=== PATIENT | female | born 1935 | race Caucasian/White ===

== ENCOUNTER 2017-03-08 12:32 | Emergency (ER) | payer MEDICARE, OTHER ==
[~2017-03-08] VITALS: Ht 152.4 cm; Wt 63.5 kg
[~2017-03-08 12:32] MED LIST: CALCIUM; CELE200C PO; CHLO25TA13 PO; HYD25 PO; OMEP20CA16 PO; RANI150T5 PO; ROSU5TAB5 PO; TRAM50TA2 PO
[2017-03-08 12:37] VITALS: Ht 152.4 cm; Wt 63.5 kg
[2017-03-08] MEDS ORDERED: HYDROCODONE/APAP (5/325) TAB PO ONE (14:00)
--- NOTE | 2017-03-08 15:21 | RADRPT ---
PROCEDURE: XR right shoulder. CLINICAL INDICATION: 82-year-old female with right shoulder pain. TECHNIQUE: AP Internal and external rotation views of the right shoulder were performed. COMPARISON: None. FINDINGS: There is narrowing of the subacromial joint space and glenohumeral joint space. There are degenerati ve changes around the right AC joint. There is a calcification lateral to the right humeral head. Th ere are degenerative osteophytes in the thoracic spine. There are vascular calcifications in the aor tic arch. The right lung is clear with mild elevation of the right diaphragm. IMPRESSION: 1. 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 2. Calcific tendonitis of the supraspinatus tendon. 3. Chronic right rotator cuff tear resulting in narrowing of the subacromial joint space. 4. Atherosclerotic vascular disease. 5. Dextroscoliosis of the mid thoracic spine with osteoarthritic degenerative changes of the thorac ic spine. RPTAT:AAJJ Physician Peter Date Time Electronically viewed and signed by Physician Peter on 03/08/2017 15:21 MISTY/
--- NOTE | 2017-03-08 15:23 | RADRPT ---
PROCEDURE: XR Cervical Spine. CLINICAL INDICATION: pain TECHNIQUE: AP, lateral and odontoid views of the cervical spine were performed. The images were re viewed on a PACS workstation. COMPARISON: None. FINDINGS: There is reversal of the cervical curvature. There is disc space narrowing with ventral and dorsal s pondylosis at C4-5, C5-6 and C6-7. There is grade 1 anterolisthesis of C7-T1. The neural canal is no rmal in size. There are vascular calcifications in the aortic arch and degenerative osteophytes are noted in the upper thoracic spine. IMPRESSION: 1. Osteoarthritis involving the upper mid and lower cervical spine. 2. Reversal of the cervical curvature and a reflect paraspinal musculature spasm. 3. Atherosclerosis of the aortic arch. 4. Osteoarthritis of the upper thoracic spine. RPTAT:AAJJ Physician Peter Date Time Electronically viewed and signed by Physician Petre on 03/08/2017 15:22 MISTY/
[2017-03-08] MEDS ORDERED: HYDR-906 PO (15:28)
--- NOTE | 2017-03-08 15:32 | ERD ---
ER Documentation Chief Complaint Date/Time DATE: 03/08/17 TIME: 15:30 Chief Complaint pt bib self with c/o left shoulder and back pain s/p lifting rock 3 wks ago HPI Patient is an 82-year-old female who presents with right shoulder pain as well as bilateral neck pain she has had for 3 weeks. She states she has a history of arthritis and she always has some aches and pains but 3 weeks ago she bent down to belt picker her small dog and ever since the pain has been aggravated. She has been taking Tylenol but it does not help and the pain keeps her up at night. She denies any chest pain or shortness of breath. Denies any palpitations. Denies trauma. ROS All systems reviewed and are negative except as per history of present illness. Medications Home Meds Active Scripts Hydrocodone/Acetaminophen ([place] 5-325 Tablet) 1 Each Tablet, 1 TAB PO Q6H Y for PAIN, #15 TAB Prov:DANIELE BRADSHAW PA-C 03/08/17 Tramadol HCl (Tramadol HCl) 50 Mg Tablet, 50 MG PO Q6 Y for PAIN, #20 TAB Prov:JASPER BENJAMIN MD 01/02/16 Reported Medications [Calcium] No Conflict Check, 600 05/06/16 Omeprazole* (Omeprazole*) 20 Mg Capsule.dr, 20 MG PO DAILY, #30 CAP 05/06/16 Hydrochlorothiazide* (Hydrochlorothiazide*) 25 Mg Tab, 25 MG PO DAILY, #30 TAB 01/02/16 Rosuvastatin Calcium* (Crestor*) 5 Mg Tablet, 5 MG PO QHS, #30 TAB 01/02/16 Chlorthalidone* (Chlorthalidone*) 25 Mg Tablet, 25 MG PO DAILY, TAB 01/02/16 Celecoxib* (Celebrex*) 200 Mg Capsule, 200 MG PO DAILY, CAP 10/17/14 Ranitidine Hcl* (Ranitidine Hcl*) 150 Mg Tablet, 150 MG PO HS, TAB 10/17/14 Tramadol HCl (Tramadol HCl) 50 Mg Tab, 50 MG PO Q6H Y for PAIN, TAB 10/17/14 Allergies Allergies: Coded Allergies: No Known Allergy (Unverified , 01/02/16) PMhx/Soc History of Surgery: No (not indicated) Anesthesia Reaction: No Hx Neurological Disorder: No Hx Respiratory Disorders: No Hx Cardiac Disorders: No Hx Psychiatric Problems: No Hx Miscellaneous Medical Probl: Yes (not indicated, except OA) Hx Alcohol Use: No Hx Substance Use: No Hx Tobacco Use: No Smoking Status: Never smoker FmHx Family History: No diabetes Physical Exam Vitals Vital Signs Date Time Temp Pulse Resp B/P Pulse Ox O2 Delivery O2 Flow Rate FiO2 03/08/17 12:37 99.0 97 16 134/64 99 Physical Exam INITIAL VITAL SIGNS: Reviewed by me GENERAL: Awake, alert and oriented x 4, well appearing, nontoxic, speaking in full sentences. No acute distress HEAD: Atraumatic EYES: EOMI. PERRL. NECK: Supple. No masses. Full range of motion. No meningismus. No midline tenderness. RESPIRATORY: Clear to auscultation bilaterally. Symmetric chest wall rise. No wheezing or rales. No accessory muscle use. CV: Regular rate and rhythm. No murmurs, rubs, or gallops. EXTREMITIES: No clubbing or cyanosis. No edema. Moving all extremities normally. BACK: No midline tenderness to palpation. No step-offs. NEUROLOGIC: Normal mental status and speech. Face is symmetric. Moves all extremities equally. Motor and sensory distally intact. Normal coordination. Ambulates with a strong steady gait. Results 24 hrs Current Medications Medications (Trade) Dose Ordered Sig/Kofi Route PRN Reason Start Time Stop Time Status Last Admin Dose Admin Acetaminophen/ Hydrocodone Bitart ([place] (5/325)) 1 tab ONCE ONCE PO 03/08/17 14:00 03/08/17 14:01 DC 03/08/17 14:19 Procedures/MDM Patient has shoulder and neck pain after bending over picking up her dog a few weeks ago. She is well-appearing in no distress. She has no chest pain or shortness of breath. This is seems to be musculoskeletal in nature. Patients is alert, oriented, well appearing, and in no distress with normal vital signs. There is no fever, tachycardia, or tachypnea. The differential diagnosis includes but is not limited to muscle strain, ligament strain, contusion, arthritis, discogenetic disease, non-musculoskeletal, cauda equina syndrome, cord compression, abscess and others. Patient was given one [place] here and at discharge she had relief of her symptoms. Patient was discharged with a small amount of [place]. I explained to her that this could cause constipation and she is taking a stool softener and I was going to give her a prescription for Colace but she states she has at home. She also has Tylenol at home. Patient counseled regarding my diagnostic impression and care plan. Prior to discharge all questions answered. Pt agrees with treatment plan and understands strict return precautions. Pt is instructed to follow up with primary care provider within 24-48 hours. Precautionary instructions provided including instructions to return to the ER if not improving or for any worsening or changing symptoms or concerns. Departure Diagnosis: Primary Impression: Shoulder pain Additional Impression: Cervical strain Condition: Stable Patient Instructions: Osteoarthritis: Coping with Pain, Osteoarthritis: Managing Pain Additional Instructions: Llame al doctor MAANA y lobo sudhakar JODEE PARA DENTRO DE 1-2 FARAH.Dgale a la secretaria que nosotros le instruimos hacer esta jodee.Avise o llame si aponte condicin se empeora antes de la jodee. Regresa aqui si peor o no mejor. DANIELE BRADSHAW PA-C Mar 08, 2017 15:32
[2017-03-08 15:41] VITALS: BP 155/67; PULSE 77; RESP 16; TEMP 98.8
== END 2017-03-08 15:42 | disposition home or self-care (01) ==
LOC: FTE 12:32
DX: S16.1XXA Strain of muscle, fascia and tendon at neck level, initial encounter (principal); X58.XXXA Exposure to other specified factors, initial encounter; Y92.9 Unspecified place or not applicable
CPT/HCPCS: 72040

== ENCOUNTER 2017-03-29 15:02 | Emergency (ER) | payer MEDICARE, OTHER ==
[~2017-03-29] VITALS: Ht 160 cm; Wt 63.5 kg
[~2017-03-29 15:02] MED LIST changes: -HYD25 PO; +HYDR-906 PO; +HYDR25TA6 PO
[2017-03-29 15:17] VITALS: Ht 160 cm; Wt 63.5 kg
[2017-03-29 16:07] LABS: BASOPHIL # 0.1 10^3/ul (0.0-0.1); BASOPHILS % 0.5 % (0.0-2.0); EOSINOPHILS # 0.4 10^3/ul (0.0-0.5); EOSINOPHILS % 4.1 % (0.0-7.0); HEMATOCRIT 39.1 % (37.0-47.0); HEMOGLOBIN 12.9 g/dl (12.0-16.0); LYMPHOCYTES # 1.7 10^3/ul (0.8-2.9); LYMPHOCYTES % 16.7 % (15.0-51.0); MEAN CORPUSCULAR VOLUME 90.9 fl (82.0-101.0); MEAN PLATELET VOLUME 9.5 fl (7.4-10.4); MONOCYTE # 1.1 10^3/ul (0.3-0.9); MONOCYTES % 10.6 % (0.0-11.0); NEUTROPHIL # 6.7 10^3/ul (1.6-7.5); NEUTROPHILS % 67.5 % (39.0-77.0); PLATELET COUNT 326 10^3/UL (140-415); RED CELL DISTRIBUTION WIDTH 12.6 % (11.5-14.5); WHITE BLOOD COUNT 9.9 10^3/ul (4.8-10.8)
[2017-03-29 16:26] LABS: ALBUMIN 3.8 g/dl (3.3-4.9); BILIRUBIN,INDIRECT 0.3 mg/dl (0-1.1); BILIRUBIN,TOTAL 0.3 mg/dl (0.2-1.3); CALCIUM 9.3 mg/dl (8.4-10.2); CREATININE 0.53 mg/dl (0.44-1.00); TOTAL PROTEIN 7.6 g/dl (6.1-8.1)
--- NOTE | 2017-03-29 16:31 | RADRPT ---
PROCEDURE: Left knee radiographs. CLINICAL INDICATION: Left knee pain. TECHNIQUE: Three views. Weight bearing. Frontal, lateral, and oblique. COMPARISON: No prior studies are available for comparison. FINDINGS: There is no fracture or dislocation. There is chondrocalcinosis. There is a left knee joint effusion. There are degenerative changes with osteophytes arising from all 3 joint compartment margins. There is medial joint compartment narrowing, subarticular sclerosis, and deformity. There is no lytic or blastic lesion. There is no radiopaque foreign body. IMPRESSION: 1. Severe degenerative change. 2. Joint effusion. 3. Otherwise unremarkable images of the left knee. RPTAT: QQ .Luis Fernando Agudelo MD, Date Time Electronically viewed and signed by .Luis Fernando Agudelo MD, on 03/29/2017 16:31 .R/
--- NOTE | 2017-03-29 16:31 | RADRPT ---
PROCEDURE: Left wrist radiographs. CLINICAL INDICATION: Left wrist pain. TECHNIQUE: Three views. Frontal, lateral, and oblique. COMPARISON: No prior studies are available for comparison. FINDINGS: There is no fracture or dislocation. The soft tissues are normal. Articular surfaces are intact. There is no lytic or blastic lesion. There is no radiopaque foreign body. IMPRESSION: 1. Normal images of the left wrist. RPTAT: QQ .Luis Fernando Agudelo MD, MD Date Time Electronically viewed and signed by .Luis Fernando Agudelo MD, on 03/29/2017 16:30 .R/
[2017-03-29] MEDS ORDERED: CAPS42.510 TOP (16:46)
--- NOTE | 2017-03-29 18:59 | ERD ---
ER Documentation Chief Complaint Date/Time DATE: 03/29/17 TIME: 18:44 Chief Complaint Pt presents with neck, L knee pain and swelling X 3 days. no injury. HPI 82-year-old female is complaining of left knee pain and left wrist pain 3 days. Symptoms onset in the morning upon awake. She also noticed redness and swelling on both wrist and left knee. The pain makes walking difficult. She is using a walker at this time. She reports feeling chilled yesterday, but did not check her temperature. Swelling has improved today. History of osteoarthritis, is taking Celebrex for pain. Denies any injuries. Denies history of gout or diabetes. ROS All systems reviewed and are negative except as per history of present illness. Medications Home Meds Active Scripts Capsaicin (Capsaicin) 42.5 Gm Cream.gm., 1 APPLIC TOP TID Y for PAIN, #1 TUB Prov:COLTON WONG. CHIEF INFORMATION SECURITY OFFICER 03/29/17 Hydrocodone/Acetaminophen ([place] 5-325 Tablet) 1 Each Tablet, 1 TAB PO Q6H Y for PAIN, #15 TAB Prov:DANIELE BRADSHAW PA-C 03/08/17 Tramadol HCl (Tramadol HCl) 50 Mg Tablet, 50 MG PO Q6 Y for PAIN, #20 TAB Prov:JASPER BENJAMIN MD 01/02/16 Reported Medications [Calcium] No Conflict Check, 600 05/06/16 Omeprazole* (Omeprazole*) 20 Mg Capsule.dr, 20 MG PO DAILY, #30 CAP 05/06/16 Hydrochlorothiazide* (Hydrochlorothiazide*) 25 Mg Tab, 25 MG PO DAILY, #30 TAB 01/02/16 Rosuvastatin Calcium* (Crestor*) 5 Mg Tablet, 5 MG PO QHS, #30 TAB 01/02/16 Chlorthalidone* (Chlorthalidone*) 25 Mg Tablet, 25 MG PO DAILY, TAB 01/02/16 Celecoxib* (Celebrex*) 200 Mg Capsule, 200 MG PO DAILY, CAP 10/17/14 Ranitidine Hcl* (Ranitidine Hcl*) 150 Mg Tablet, 150 MG PO HS, TAB 10/17/14 Tramadol HCl (Tramadol HCl) 50 Mg Tab, 50 MG PO Q6H Y for PAIN, TAB 10/17/14 Allergies Allergies: Coded Allergies: No Known Allergy (Unverified , 7/5/16) PMhx/Soc History of Surgery: No (not indicated) Anesthesia Reaction: No Hx Neurological Disorder: No Hx Respiratory Disorders: No Hx Cardiac Disorders: No Hx Psychiatric Problems: No Hx Miscellaneous Medical Probl: Yes (not indicated, except OA) Hx Alcohol Use: No Hx Substance Use: No Hx Tobacco Use: No Physical Exam Vitals Vital Signs Date Time Temp Pulse Resp B/P Pulse Ox O2 Delivery O2 Flow Rate FiO2 03/29/17 15:17 99.5 87 16 121/58 95 Physical Exam General: Well-developed, well-nourished, conscious and coherent, in no distress Skin: Warm and dry without rash, good texture and turgor Head: Normocephalic without evidence of trauma Eyes: Sclera and conjunctivae normal; pupils equal, round, and reactive to light; extraocular movements are intact Chest: Normal AP diameter. Good expansion without retractions. Nontender. Lungs are clear to auscultate bilaterally with good tidal volume Heart: Regular rate and rhythm. No murmur, rub, or gallops heard Extremities: Left wrist left knee mildly swollen compared to the right, nontender. Mildly decreased range of motion due to pain. Good strength bilaterally. No clubbing, cyanosis, or edema. Peripheral pulses are intact. Sensation intact Neuro: Alert and oriented 4, GCS 15. Cranial nerves grossly intact. Motor and sensory exams nonfocal. Moves all extremities. Speech clear. Gait normal Result Diagram: 03/29/17 1556 03/29/17 1556 Results 24 hrs Laboratory Tests Test 03/29/17 15:56 White Blood Count 9.910^3/ul Red Blood Count 4.3010^6/ul Hemoglobin 12.9g/dl Hematocrit 39.1% Mean Corpuscular Volume 90.9fl Mean Corpuscular Hemoglobin 30.0pg Mean Corpuscular Hemoglobin Concent 33.0g/dl Red Cell Distribution Width 12.6% Platelet Count 94168^3/UL Mean Platelet Volume 9.5fl Neutrophils % 67.5% Lymphocytes % 16.7% Monocytes % 10.6% Eosinophils % 4.1% Basophils % 0.5% Nucleated Red Blood Cells % 0.0/100WBC Neutrophils # 6.710^3/ul Lymphocytes # 1.710^3/ul Monocytes # 1.110^3/ul Eosinophils # 0.410^3/ul Basophils # 0.110^3/ul Nucleated Red Blood Cells # 0.010^3/ul Sodium Level 136mmol/L Potassium Level 4.0mmol/L Chloride Level 100mmol/L Carbon Dioxide Level 30mmol/L Anion Gap 10 Blood Urea Nitrogen 22mg/dl Creatinine 0.53mg/dl Glucose Level 112mg/dl Uric Acid 3.0mg/dl Calcium Level 9.3mg/dl Total Bilirubin 0.3mg/dl Direct Bilirubin 0.00mg/dl Indirect Bilirubin 0.3mg/dl Aspartate Amino Transf (AST/SGOT) 25IU/L Alanine Aminotransferase (ALT/SGPT) 34IU/L Alkaline Phosphatase 106IU/L Total Protein 7.6g/dl Albumin 3.8g/dl Globulin 3.80g/dl Albumin/Globulin Ratio 1.00 PROCEDURE: Left knee radiographs. CLINICAL INDICATION: Left knee pain. TECHNIQUE: Three views. Weight bearing. Frontal, lateral, and oblique. COMPARISON: No prior studies are available for comparison. FINDINGS: There is no fracture or dislocation. There is chondrocalcinosis. There is a left knee joint effusion. There are degenerative changes with osteophytes arising from all 3 joint compartment margins. There is medial joint compartment narrowing, subarticular sclerosis, and deformity. There is no lytic or blastic lesion. There is no radiopaque foreign body. IMPRESSION: 1. Severe degenerative change. 2. Joint effusion. 3. Otherwise unremarkable images of the left knee. RPTAT: QQ .Luis Fernando Agudelo MD, MD Date Time Electronically viewed and signed by .Luis Fernando Agudelo MD, on 03/29/2017 16:31 .R/ CC: COLTON WONG NP PROCEDURE: Left wrist radiographs. CLINICAL INDICATION: Left wrist pain. TECHNIQUE: Three views. Frontal, lateral, and oblique. COMPARISON: No prior studies are available for comparison. FINDINGS: There is no fracture or dislocation. The soft tissues are normal. Articular surfaces are intact. There is no lytic or blastic lesion. There is no radiopaque foreign body. IMPRESSION: 1. Normal images of the left wrist. RPTAT: QQ .Luis Fernando Agudelo MD, Date Time Electronically viewed and signed by .Luis Fernando Agudelo MD, on 03/29/2017 16:30 .R/ CC: COLTON WONG CHIEF INFORMATION SECURITY OFFICER Procedures/MDM Well-appearing 82-year-old female with history of osteoarthritis present ED was left wrist and left knee swelling and pain 3 days. Time, patient does not have any discernible erythema or swelling of the affected joint. Low suspicion for septic joints. CBC and CMP are unremarkable. Uric acid is low at 3.0. Low suspicion for gout. X-ray of the left wrist and left knee are also obtained. Wrist x-rays unremarkable. Left knee x-ray showed severe degenerative change with joint effusion, otherwise unremarkable. The patient's pain is due to osteoarthritis. Patient advised to continue taking Celebrex, and follow-up with her PCP. Capzasin cream topical treatment is prescribed for the patient. Patient appears well, stable for discharge and outpatient management. Medical decision making shared with patient and family. Education provided to patient and family. Patient and family expressed understanding of the plan. Medications on discharge: Capsaicin cream. Follow-up: Primary care provider in 2-3 days or return to ED if worse. Disclaimer: Inadvertent spelling and grammatical errors are likely due to EHR/ dictation software use and do not reflect on the overall quality of patient care. Also, please note that the electronic time recorded on this note does not necessarily reflect the actual time of the patient encounter. Departure Diagnosis: Primary Impression: Left knee pain Additional Impressions: Osteoarthritis Left wrist pain Condition: Stable Patient Instructions: What Is Arthritis? Additional Instructions: Llame al doctor MAANA y lobo sudhakar JODEE PARA DENTRO DE 2-3 FARAH.Dgale a la secretaria que nosotros le instruimos hacer esta jodee.Avise o llame si aponte condicin se empeora antes de la jodee. Regresa aqui si peor o no mejor. COLTON WONG NP Mar 29, 2017 18:54
== END 2017-03-29 17:08 | disposition home or self-care (01) ==
LOC: FTE 15:02
DX: M25.562 Pain in left knee (principal); M17.9 Osteoarthritis of knee, unspecified; M25.532 Pain in left wrist
CPT/HCPCS: 73562; 80053; 84560; 85025

== ENCOUNTER 2017-04-18 19:07 | Emergency (ER) | payer MEDICARE, OTHER ==
[~2017-04-18] VITALS: Ht 160 cm; Wt 63.5 kg
[~2017-04-18 19:07] MED LIST changes: +CAPS42.510 TOP
[2017-04-18 19:11] VITALS: Ht 160 cm; Wt 63.5 kg
[2017-04-18] MEDS ORDERED: ACETAMINOPHEN 325 MG TAB PO ONE (21:00)
--- NOTE | 2017-04-18 22:19 | RADRPT ---
PROCEDURE: XR Chest. CLINICAL INDICATION: Fall with upper back pain. TECHNIQUE: PA and Lateral views of the chest were obtained. COMPARISON: 05/08/2012. FINDINGS: Cardiomegaly and atherosclerotic calcifications in the thoracic aorta. The lungs are clear. No signs of pleural fluid or pneumothorax are seen. The osseous structures and soft tissues are unremarkable . IMPRESSION: No evidence for active cardiopulmonary disease. RPTAT: UU Physician Melquiades Date Time Electronically viewed and signed by Physician Melquiades on 04/18/2017 22:19 RS/
--- NOTE | 2017-04-18 22:27 | RADRPT ---
PROCEDURE: XR thoracic Spine. CLINICAL INDICATION: Back pain. TECHNIQUE: AP, lateral and swimmer's views of the thoracic spine were obtained. COMPARISON: No prior studies are available for comparison. FINDINGS: Degenerative changes with anterior endplate osteophytes and bilateral marginal osteophytes throughou t the thoracic spine. Mild levoscoliosis in the lower thoracic spine. No acute fracture or subluxation is seen. Are narrowed throughout the cervical spine, with near bone on bone articulation at the mid cervical spine. The posterior elements are unremarkable. The soft tissues appear normal. Cardiomegaly. Atherosclerotic calcifications in the thoracic aorta. IMPRESSION: 1. Degenerative changes, with mild levoscoliosis in the lower thoracic spine. 2. No evident acute fracture. RPTAT: UU Physician Melquiades Date Time Electronically viewed and signed by Physician Melquiades on 04/18/2017 22:27 RS/
--- NOTE | 2017-04-18 22:27 | RADRPT ---
PROCEDURE: CT Brain without contrast. CLINICAL INDICATION: Trauma. Pain.. TECHNIQUE: A CT of the brain was performed on a multislice detector CT scanner utilizing axial sec tions from the skull base through the vertex without contrast. Images were reviewed on a [facility] PACS workstation. Exam CTDlvol = 45 mGy and DLP = 630 mGy-cm. One of the following 3 dose red uction techniques were used: Automated exposure control; adjustment of the mA and/or kV according to patient size; or use of iterative reconstruction technique. COMPARISON: MRI brain 12/16/2013 FINDINGS: There is left posterior parietal subcutaneous soft tissue swelling without an underlying fracture. T here is redemonstrated partially calcified hyperdense extra-axial mass of the anterior left frontal parasagittal region 2.17 x 1.8 cm, not significantly changed from prior study. There is localized ef facement of sulci without associated parenchymal edema. There is otherwise no significant mass effec t. There is otherwise age appropriate central and peripheral atrophy. There is no midline shift. T here is a moderate degree of supratentorial periventricular and subcortical white matter hypodensiti es. There is no definite acute stroke. There is no intracranial hemorrhage or abnormal extra-axial fluid collection. Visualized paranasal sinuses are clear. IMPRESSION: 1. Left posterior parietal subcutaneous soft tissue swelling without an underlying fracture. 2. No acute intracranial post-traumatic abnormality. No intracranial hemorrhage. 3. Redemonstrated partially calcified extra-axial mass in the anterior left frontal parasagittal re gion, consistent with a meningioma.. 4. Nonspecific white matter changes most commonly seen with microvascular ischemic disease. RPTAT: HMVK .Liban Melton MD, MD Date Time Electronically viewed and signed by .Liban Melton MD, MD on 04/18/2017 22:27 .K/
--- NOTE | 2017-04-18 22:31 | RADRPT ---
PROCEDURE: XR Lumbar Spine. CLINICAL INDICATION: Back pain. TECHNIQUE: AP, lateral and cone-down lateral view of the lumbar spine were obtained. COMPARISON: No prior studies are available for comparison. FINDINGS: Degenerative changes in the lumbar spine, with disc space narrowing at the L4-5 and L5-S1 levels. Mi ld grade 1 anterolisthesis of L5 and S1. Posterior facet degenerative changes seen at the L3-S1 leve ls, greater at the L5-S1 level. No fracture or subluxation is seen. Levoscoliosis at the lower thoracic and upper lumbar spines. Moderate to severe degenerative changes in bilateral sacroiliac joints. The soft tissues appear normal. IMPRESSION: 1. Degenerative changes with disc space narrowing the lower lumbar spine. 2. Posterior facet degenerative changes, greater at the L5-S1 level. 3. Grade 1 anterolisthesis of L5 on S1. . No acute fracture. 5. Moderate to severe degenerative changes in the bilateral sacroiliac joints. RPTAT: UU Physician Melquiades Date Time Electronically viewed and signed by Physician Melquiades on 04/18/2017 22:31 RS/
--- NOTE | 2017-04-18 22:38 | RADRPT ---
PROCEDURE: CT cervical spine without contrast CLINICAL INDICATION: Trauma. Neck pain. TECHNIQUE: CT scan of the cervical spine was performed on a multidetector scanner. No IV contrast was administered. Coronal and sagittal reformatted images were obtained from the axial source imag es. Images were reviewed on a high-resolution PACS workstation. Exam CTDlvol = 22 mGy and DLP = 464 mGy-cm. One of the following 3 dose reduction techniques were used: Automated exposure control; ad justment of the mA and/or kV according to patient size; or use of iterative reconstruction technique . COMPARISON: X-rays cervical spine 02/11/2015 FINDINGS: No fracture is identified. There is maintenance of height of the vertebral bodies. There is mild r eversal of the normal cervical lordosis. There is unchanged chronic 2.7 mm grade 1 anterior subluxa tion of 7 T1. Alignment is otherwise maintained. Degenerative changes are present, greatest from C 4-5 through C6-7 Prevertebral soft tissues are unremarkable. IMPRESSION: 1. No fracture. 2. Mild reversal of the normal cervical lordosis most commonly seen with spasm versus positioning. 3. Multilevel degenerative changes, greatest at C4-5 to C6-7. 4. Chronic likely degenerative related RPTAT: HMVK .Liban Melton MD, Date Time Electronically viewed and signed by .Liban Melton MD, MD on 04/18/2017 22:38 .K/
[2017-04-18] MEDS ORDERED: ACET500C5 PO (23:52)
[2017-04-19] MEDS ORDERED: DIPHTH/TET/ACEL PERTUSS (ADULT) 0.5 ML VIAL IM* ONE
--- NOTE | 2017-04-19 00:43 | ERD ---
ER Documentation Chief Complaint Chief Complaint scalp laceration after a ground level fall no loc (MARIN GRAHAM PA-C) HPI 82-year-old English speaking female patient with no significant past medical history presents to the ED for a mechanical fall that occurred earlier today at 6 PM. Patient was using her walker to walk at the mall parking lot and her walker got stuck on the bumper and she accidentally fell backwards and hit the back of her head and back. Denies any loss of consciousness. States that mainly her head, neck, upper and lower back hurt. Describes the pain as achy and rates it a 6 out of 10. Reports that she sustained a laceration on her scalp. Denies taking any blood thinners. Denies any chest pain, shortness of breath, wheezing, nausea, vomiting, diarrhea, constipation. Patient's daughter helped interpret English at this time. (MARIN GRAHAM PA-C) ROS All systems reviewed and are negative except as per history of present illness. (MARIN GRAHAM PA-C) Medications Home Meds Active Scripts Acetaminophen* (Tylophen*) 500 Mg Capsule, 1 CAP PO Q6H Y for PAIN AND OR ELEVATED TEMP, #20 CAP Prov:MARIN GRAHAM PA-C 04/18/17 Capsaicin (Capsaicin) 42.5 Gm Cream.gm., 1 APPLIC TOP TID Y for PAIN, #1 TUB Prov:COLTON WONG. TELEGRAPH PRINTER MECHANIC 03/29/17 Hydrocodone/Acetaminophen ([place] 5-325 Tablet) 1 Each Tablet, 1 TAB PO Q6H Y for PAIN, #15 TAB Prov:DANIELE BRADSAHW PA-C 03/08/17 Tramadol HCl (Tramadol HCl) 50 Mg Tablet, 50 MG PO Q6 Y for PAIN, #20 TAB Prov:JASPER BENJAMIN MD 01/02/16 Reported Medications [Calcium] No Conflict Check, 600 05/06/16 Omeprazole* (Omeprazole*) 20 Mg Capsule., 20 MG PO DAILY, #30 CAP 05/06/16 Hydrochlorothiazide* (Hydrochlorothiazide*) 25 Mg Tab, 25 MG PO DAILY, #30 TAB 01/02/16 Rosuvastatin Calcium* (Crestor*) 5 Mg Tablet, 5 MG PO QHS, #30 TAB 01/02/16 Chlorthalidone* (Chlorthalidone*) 25 Mg Tablet, 25 MG PO DAILY, TAB 01/02/16 Celecoxib* (Celebrex*) 200 Mg Capsule, 200 MG PO DAILY, CAP 10/17/14 Ranitidine Hcl* (Ranitidine Hcl*) 150 Mg Tablet, 150 MG PO HS, TAB 10/17/14 Tramadol HCl (Tramadol HCl) 50 Mg Tab, 50 MG PO Q6H Y for PAIN, TAB 10/17/14 Allergies Allergies: Coded Allergies: No Known Allergy (Unverified , 01/02/16) PMhx/Soc History of Surgery: Yes (R foot, R knee) Anesthesia Reaction: No Hx Neurological Disorder: No Hx Respiratory Disorders: No Hx Cardiac Disorders: No Hx Psychiatric Problems: No Hx Miscellaneous Medical Probl: Yes (arthritis, GERD) Hx Alcohol Use: No Hx Substance Use: No Hx Tobacco Use: No Smoking Status: Never smoker (MARIN GRAHAM PA-C) Physical Exam Vitals Vital Signs Date Time Temp Pulse Resp B/P Pulse Ox O2 Delivery O2 Flow Rate FiO2 04/18/17 19:11 99.1 88 20 163/75 97 (MARIN GRAHAM PA-C) Physical Exam Const: Wqf-hoa-kezdevtby, well-nourished. In no acute distress. Head: Atraumatic, normocephalic. 1 centimeter linear laceration, horizontal present in the posterior occiput. No hematoma. No diaz sign. Eyes: Normal Conjunctiva without injection. No purulent discharge. PERRLA. EOMI ENT: Normal external ear. Ear canal without erythema. Tympanic membrane pearly hernandez without effusion or bulging. No hemotympanum. Nasal canal clear with normal turbinates. Moist oropharynx without tonsillar exudates. Non- erythematous pharynx. Uvula midline. No drooling. No trismus. Neck: No cervical midline tenderness. Full range of motion. No meningismus. No cervical lymphadenopathy. No JVD. Resp: Clear to auscultation bilaterally. No wheezing, rhonchi, rales, or crackles. No accessory muscle use. No retractions. Cardio: Regular rate and rhythm. No murmurs, rubs or gallops. Abd: Soft, non tender, non distended. Normal bowel sounds. No palpable masses. No rebound tenderness. No guarding. Negative McBurney's Point. Negative Montgomery's Sign. Skin: Normal skin turgor. No petechiae or rashes Back: No midline tenderness. No CVA tenderness. Ext: No cyanosis, or edema. Distal pulses intact bilaterally. Neur: Awake and alert. Normal gait. Normal coordination. Cranial Nerves II- VII intact. Normal finger to nose. Muscle strength 5/5. Sensation intact. Psych: Normal Mood and Affect (MARIN GRAHAM PA-C) Results 24 hrs Current Medications Medications (Trade) Dose Ordered Sig/Kofi Route PRN Reason Start Time Stop Time Status Last Admin Dose Admin Acetaminophen (Tylenol Tab) 650 mg ONCE ONCE PO 04/18/17 21:00 04/18/17 21:01 DC 04/18/17 21:00 Diphtheria/ Tetanus/Acell Pertussis (Adacel) 0.5 ml ONCE ONCE IM* 04/19/17 00:00 04/19/17 00:01 DC 04/19/17 00:09 (JASPER BENJAMIN MD) Procedures/MDM 82-year-old female patient with no sniffing a past medical history presents to the ED complaining of a laceration to her scalp as well as mechanical fall where she also has neck and upper and lower back pain. Patient is afebrile and nontoxic-appearing. Patient's blood pressure is 163/75. Patient's blood pressure was elevated (>120/80) but appears stable without evidence of hypertension emergency or urgency. The patient was counseled about the risks of hypertension and urged to pursue outpatient monitoring and therapy within a week with their primary care physician. CT of neck, CT of brain, CXR, xray of lumbar and thoracic spine was ordered to further evaluate patient. PROCEDURE: CT Brain without contrast. CLINICAL INDICATION: Trauma. Pain.. TECHNIQUE: A CT of the brain was performed on a multislice detector CT scanner utilizing axial sections from the skull base through the vertex without contrast. Images were reviewed on a high-resolution PACS workstation. Exam CTDlvol = 45 mGy and DLP = 630 mGy-cm. One of the following 3 dose reduction techniques were used: Automated exposure control; adjustment of the mA and/or kV according to patient size; or use of iterative reconstruction technique. COMPARISON: MRI brain 12/16/2013 FINDINGS: There is left posterior parietal subcutaneous soft tissue swelling without an underlying fracture. There is redemonstrated partially calcified hyperdense extra-axial mass of the anterior left frontal parasagittal region 2.17 x 1.8 cm , not significantly changed from prior study. There is localized effacement of sulci without associated parenchymal edema. There is otherwise no significant mass effect. There is otherwise age appropriate central and peripheral atrophy. There is no midline shift. There is a moderate degree of supratentorial periventricular and subcortical white matter hypodensities. There is no definite acute stroke. There is no intracranial hemorrhage or abnormal extra- axial fluid collection. Visualized paranasal sinuses are clear. IMPRESSION: 1. Left posterior parietal subcutaneous soft tissue swelling without an underlying fracture. 2. No acute intracranial post-traumatic abnormality. No intracranial hemorrhage. 3. Redemonstrated partially calcified extra-axial mass in the anterior left frontal parasagittal region, consistent with a meningioma.. 4. Nonspecific white matter changes most commonly seen with microvascular ischemic disease. PROCEDURE: CT cervical spine without contrast CLINICAL INDICATION: Trauma. Neck pain. TECHNIQUE: CT scan of the cervical spine was performed on a multidetector scanner. No IV contrast was administered. Coronal and sagittal reformatted images were obtained from the axial source images. Images were reviewed on a high-resolution PACS workstation. Exam CTDlvol = 22 mGy and DLP = 464 mGy-cm. One of the following 3 dose reduction techniques were used: Automated exposure control; adjustment of the mA and/or kV according to patient size; or use of iterative reconstruction technique. COMPARISON: X-rays cervical spine 02/11/2015 FINDINGS: No fracture is identified. There is maintenance of height of the vertebral bodies. There is mild reversal of the normal cervical lordosis. There is unchanged chronic 2.7 mm grade 1 anterior subluxation of 7 T1. Alignment is otherwise maintained. Degenerative changes are present, greatest from C4-5 through C6-7 Prevertebral soft tissues are unremarkable. IMPRESSION: 1. No fracture. 2. Mild reversal of the normal cervical lordosis most commonly seen with spasm versus positioning. 3. Multilevel degenerative changes, greatest at C4-5 to C6-7. 4. Chronic likely degenerative related PROCEDURE: XR Chest. CLINICAL INDICATION: Fall with upper back pain. TECHNIQUE: PA and Lateral views of the chest were obtained. COMPARISON: 05/08/2012. FINDINGS: Cardiomegaly and atherosclerotic calcifications in the thoracic aorta. The lungs are clear. No signs of pleural fluid or pneumothorax are seen. The osseous structures and soft tissues are unremarkable. IMPRESSION: No evidence for active cardiopulmonary disease. PROCEDURE: XR Lumbar Spine. CLINICAL INDICATION: Back pain. TECHNIQUE: AP, lateral and cone-down lateral view of the lumbar spine were obtained. COMPARISON: No prior studies are available for comparison. FINDINGS: Degenerative changes in the lumbar spine, with disc space narrowing at the L4-5 and L5-S1 levels. Mild grade 1 anterolisthesis of L5 and S1. Posterior facet degenerative changes seen at the L3-S1 levels, greater at the L5-S1 level. No fracture or subluxation is seen. Levoscoliosis at the lower thoracic and upper lumbar spines. Moderate to severe degenerative changes in bilateral sacroiliac joints. The soft tissues appear normal. IMPRESSION: 1. Degenerative changes with disc space narrowing the lower lumbar spine. 2. Posterior facet degenerative changes, greater at the L5-S1 level. 3. Grade 1 anterolisthesis of L5 on S1. . No acute fracture. 5. Moderate to severe degenerative changes in the bilateral sacroiliac joints. PROCEDURE: XR thoracic Spine. CLINICAL INDICATION: Back pain. TECHNIQUE: AP, lateral and swimmer's views of the thoracic spine were obtained. COMPARISON: No prior studies are available for comparison. FINDINGS: Degenerative changes with anterior endplate osteophytes and bilateral marginal osteophytes throughout the thoracic spine. Mild levoscoliosis in the lower thoracic spine. No acute fracture or subluxation is seen. Are narrowed throughout the cervical spine, with near bone on bone articulation at the mid cervical spine. The posterior elements are unremarkable. The soft tissues appear normal. Cardiomegaly. Atherosclerotic calcifications in the thoracic aorta. IMPRESSION: 1. Degenerative changes, with mild levoscoliosis in the lower thoracic spine. 2. No evident acute fracture. Patient gave consent to perform laceration repair. Laceration Repair by me: Anesthesia: None Location: [Posterior occiput] Tendon/Joint/Nerves: No injury Foreign body: None detected after copious irrigation and exploration Technique: 2 singh Complexity: No subcutaneous sutures/mucosal repair/ edge excision Post Closure Length: [1] cm Patient's bleeding was easily controlled in the department and there is no indication of anemia. Patient is neurovascularly intact. No evidence of compartment syndrome, neurologic injury, vascular injury, open joint, tendon laceration, or foreign body. Patient is appropriate for outpatient follow up. 48 hour wound check. Scar minimization instructions given. Instructed patient to return for staple removal in 7 days. Patient is ambulating here in the ED without difficulty. Denies saddle anesthesia, numbness or tingling, urine or bowel incontinence, weakness. Low suspicion for cauda equina syndrome, cord compression, nephrolithiasis, aortic aneurysm, aortic dissection, epidural abscess, spinal hematoma, malignancy, pyelonephritis, or other emergent conditions. There is low suspicion for intracranial bleed, subarachnoid hemorrhage, meningitis, TIA, stroke, acute neurologic deficits, mass-effect, subdural hematoma, epidural hematoma, or other emergent conditions. Low suspicion for acute myocardial infarction, pneumothorax, pneumonia, cardiac tamponade, pulmonary embolism, pleural effusion , AAA, aortic dissection, Boerhaave's syndrome, cardiac dysrhythmias,meningitis , intracranial bleed, seizure, stroke, TIA or other emergent conditions. Discharge medications: Tylenol Follow up with primary care physician in 1-2 days. Instructed patient to return to the ED sooner for any worsening symptoms. Patient's questions were answered. Patient understood and agreed with discharge plan. Patient discharged stable. (MARIN GRAHAM PA-C) Departure Diagnosis: Primary Impression: Scalp laceration Encounter type: initial encounter Qualified Code: S01.01XA - Laceration of scalp, initial encounter Additional Impression: Head injury Encounter type: initial encounter Qualified Code: S09.90XA - Injury of head , initial encounter Condition: Stable Patient Instructions: Back Pain (Acute Or Chronic), HEAD INJURY, No Wake-Up ( Adult), Laceration, Scalp Referrals: [facility] YOU HAVE RECEIVED A MEDICAL SCREENING EXAM AND THE RESULTS INDICATE THAT YOU DO NOT HAVE A CONDITION THAT REQUIRES URGENT TREATMENT IN THE EMERGENCY DEPARTMENT. FURTHER EVALUATION AND TREATMENT OF YOUR CONDITION CAN WAIT UNTIL YOU ARE SEEN IN YOUR DOCTORS OFFICE WITHIN THE NEXT 1-2 DAYS. IT IS YOUR RESPONSIBILITY TO MAKE AN APPOINTMENT FOR FOLOW-UP CARE. IF YOU HAVE A PRIMARY DOCTOR --you should call your primary doctor and schedule an appointment IF YOU DO NOT HAVE A PRIMARY DOCTOR YOU CAN CALL OUR PHYSICIAN REFERRAL HOTLINE AT IF YOU CAN NOT AFFORD TO SEE A PHYSICIAN YOU CAN CHOSE FROM THE FOLLOWING [facility] [address] [facility]. [facility] [address] [facility] [facility] [address] [facility] [facility] [address] [facility]. [facility] [address] [facility]. [facility] YOU HAVE RECEIVED A MEDICAL SCREENING EXAM AND THE RESULTS INDICATE THAT YOU DO NOT HAVE A CONDITION THAT REQUIRES URGENT TREATMENT IN THE EMERGENCY DEPARTMENT. FURTHER EVALUATION AND TREATMENT OF YOUR CONDITION CAN WAIT UNTIL YOU ARE SEEN IN YOUR DOCTORS OFFICE WITHIN THE NEXT 1-2 DAYS. IT IS YOUR RESPONSIBILITY TO MAKE AN APPOINTMENT FOR FOLOW-UP CARE. IF YOU HAVE A PRIMARY DOCTOR --you should call your primary doctor and schedule and appointment IF YOU DO NOT HAVE A PRIMARY DOCTOR YOU CAN CALL OUR PHYSICIAN REFERRAL HOTLINE AT . IF YOU CAN NOT AFFORD TO SEE A PHYSICIAN YOU CAN CHOSE FROM THE FOLLOWING [facility] INSTITUTIONS: [facility] [address] [place] [address] [facility] [address] [place] [address] [facility] + [facility] [address] [place] [address] [facility] URGENT CARE/SPECIALTIES Additional Instructions: WOUND CHECK:CONSULTE A LEONARD MDICO EN 2 dorsey para lamberto LEONARD HERIDA. SUTURE REMOVAL:CONSULTE A LEONARD MDICO PARA SACAR LEONARD PUNTOS.PARA LA SONIDO 5-6 d as.EN OTRO LUGAR 7-10 dorsey. Llame al doctor MAANA y lobo sudhakar JODEE PARA DENTRO DE 2-3 FARAH.Dgale a la secretaria que nosotros le instruimos hacer esta jodee.Avise o llame si leonard condicin se empeora antes de la jodee. Regresa aqui si peor o no mejor. MARIN GRAHAM PA-C Apr 19, 2017 00:43 JASPER BENJAMIN MD Apr 23, 2017 22:21
== END 2017-04-19 00:23 | disposition home or self-care (01) ==
LOC: FTE 19:07
DX: S01.01XA Laceration without foreign body of scalp, initial encounter (principal); M54.6 Pain in thoracic spine; W18.09XA Striking against other object with subsequent fall, initial encounter; Y92.481 Parking lot as the place of occurrence of the external cause; Z23 Encounter for immunization
CPT/HCPCS: 70450; 71010; 72072; 72100; 72125; 90471; 90715

== ENCOUNTER 2017-04-27 16:04 | Emergency (ER) | payer MEDICARE, OTHER ==
[~2017-04-27] VITALS: Ht 154.9 cm; Wt 62.5 kg
[~2017-04-27 16:04] MED LIST changes: +ACET500C5 PO
[2017-04-27 16:13] VITALS: Ht 154.9 cm; Wt 62.5 kg
--- NOTE | 2017-04-27 16:54 | ERD ---
ER Documentation Chief Complaint Chief Complaint suture removal from head HPI This is an 82-year-old female who presents to the emergency room for suture removal. The patient sustained a scalp laceration and required 2 singh for repair. She denies any drainage or discharge or dehiscence. She has no issues to report, no headache. ROS No fevers chills or headache. Medications Home Meds Active Scripts Acetaminophen* (Tylophen*) 500 Mg Capsule, 1 CAP PO Q6H Y for PAIN AND OR ELEVATED TEMP, #20 CAP Prov:MARIN GRAHAM PA-C 04/18/17 Capsaicin (Capsaicin) 42.5 Gm Cream.gm., 1 APPLIC TOP TID Y for PAIN, #1 TUB Prov:COLTON WONG PROPERTY WORKER 03/29/17 Hydrocodone/Acetaminophen ([place] 5-325 Tablet) 1 Each Tablet, 1 TAB PO Q6H Y for PAIN, #15 TAB Prov:DANIELE BRADSHAW PA-C 03/08/17 Tramadol HCl (Tramadol HCl) 50 Mg Tablet, 50 MG PO Q6 Y for PAIN, #20 TAB Prov:JASPER BENJAMIN MD 01/02/16 Reported Medications [Calcium] No Conflict Check, 600 05/06/16 Omeprazole* (Omeprazole*) 20 Mg Capsule.dr, 20 MG PO DAILY, #30 CAP 05/06/16 Hydrochlorothiazide* (Hydrochlorothiazide*) 25 Mg Tab, 25 MG PO DAILY, #30 TAB 01/02/16 Rosuvastatin Calcium* (Crestor*) 5 Mg Tablet, 5 MG PO QHS, #30 TAB 01/02/16 Chlorthalidone* (Chlorthalidone*) 25 Mg Tablet, 25 MG PO DAILY, TAB 01/02/16 Celecoxib* (Celebrex*) 200 Mg Capsule, 200 MG PO DAILY, CAP 10/17/14 Ranitidine Hcl* (Ranitidine Hcl*) 150 Mg Tablet, 150 MG PO HS, TAB 10/17/14 Tramadol HCl (Tramadol HCl) 50 Mg Tab, 50 MG PO Q6H Y for PAIN, TAB 10/17/14 Allergies Allergies: Coded Allergies: No Known Allergy (Unverified , 01/02/16) PMhx/Soc History of Surgery: Yes (R foot, R knee) Anesthesia Reaction: No Hx Neurological Disorder: No Hx Respiratory Disorders: No Hx Cardiac Disorders: No Hx Psychiatric Problems: No Hx Miscellaneous Medical Probl: Yes (arthritis, GERD) Hx Alcohol Use: No Hx Substance Use: No Hx Tobacco Use: No FmHx Family History: No diabetes Physical Exam Vitals Vital Signs Date Time Temp Pulse Resp B/P Pulse Ox O2 Delivery O2 Flow Rate FiO2 04/27/17 16:13 99.2 90 20 134/59 96 Physical Exam General: Well developed, well nourished, no acute distress Head: Normocephalic, atraumatic. Eyes: EOM intact ENT: Moist mucous membranes Neck: Full ROM Respiratory: No respiratory distress Cardiovascular: Good capillary refil Abdominal: Nondistended : Deferred MSK: No edema, no unilateral swelling, 5/5 strength Neurologic: Alert and oriented, moving all extremities, normal speech, steady gait Skin: A well-healing and well approximated occipital scalp laceration has 2 singh intact without erythema drainage or discharge, no dehiscence. Psych: Normal mood Procedures/MDM Staple Removal Note: The patient was verbally consented prior to procedure and understands the risks , benefits, and alternatives. The patient is agreeable to procedure and has given verbal consent. Location: Occipital scalp Number of singh: 2 Inspection: There is no evidence of deep tissue or structural injury, no evidence of foreign bodies, no evidence of wound dehiscence or infection All singh removed intact using staple removal device. The patient tolerated the procedure well with no complications. The patient's wound is extremely well-appearing here in the emergency room. There are no signs or symptoms concerning for complication such as wound dehiscence, wound infection, cellulitis, or deep space infection. I discussed routine wound care as well as scar minimization techniques. The patient is safe for discharge with outpatient primary care follow-up as needed. Patient was discharged. Departure Diagnosis: Primary Impression: Removal of singh Condition: Stable Patient Instructions: Staple Removal, No Complication Additional Instructions: Llame al doctor kathy londono (Referral Sources) MAANA y lobo sudhakar JODEE PARA DENTRO DE SUDHAKAR SEMANA. Dgale a la secretaria que nosotros le instruimos hacer esta jodee.Avise o llame si aponte condicin se empeora antes de la jodee. JAMIR RODRIGUEZ MD Apr 27, 2017 16:54
== END 2017-04-27 17:02 | disposition home or self-care (01) ==
LOC: E/R 16:04
DX: Z48.02 Encounter for removal of sutures (principal)
CPT/HCPCS: 99281